=== PATIENT | female | born 1985 | race African-American/Black ===

== ENCOUNTER → 2016-11-29 | Outpatient (CLI) | payer MEDICAID | LOC: RAD 10:33 | PROVIDERS: ATTEND Nurse Practitioner | DX: M54.41 Lumbago with sciatica, right side (principal) | CPT/HCPCS: 72148 ==

== ENCOUNTER → 2018-06-22 | Outpatient (CLI) | payer MEDICAID ==
--- NOTE | 2018-06-22 12:34 | RADIOLOGY REPORT (SQ) ---
EXAM DESCRIPTION: T SPINE AP/LAT COMPLETED DATE/TIME: 06/22/2018 11:27 am REASON FOR STUDY: BACK PAIN (M54.9) M54.9 DORSALGIA, UNSPECIFIED COMPARISON: 04/28/2012 NUMBER OF VIEWS: Two views. TECHNIQUE: AP and lateral radiographic images acquired of the thoracic spine. LIMITATIONS: None. FINDINGS: MINERALIZATION: Normal. ALIGNMENT: Sigmoid scoliosis. 15 convex left at T3-4, 6 convex right T9-10. VERTEBRAE: No fracture or bone lesion. Maintained height, normal segmentation. DISCS: No significant loss of height or significant narrowing. No large osteophytes. HARDWARE: None in the spine. MEDIASTINUM AND SOFT TISSUES: Normal heart size and aortic contour. No soft tissue abnormality. VISUALIZED LUNG SALCEDO: Clear. OTHER: No other significant finding. IMPRESSION: Sigmoid scoliosis as described above. No acute findings. TECHNICAL DOCUMENTATION: JOB ID: [id number] [employer]- All Rights Reserved Reading location - IP/workstation name: [email or web address]
== END ==
LOC: RAD 11:06
PROVIDERS: ATTEND Physician Assistant
DX: M54.9 Dorsalgia, unspecified (principal); M41.84 Other forms of scoliosis, thoracic region
CPT/HCPCS: 72070

== ENCOUNTER 2020-05-22 19:35 | Emergency (ER) | payer MEDICAID ==
[2020-05-22 20:04] VITALS: BP 120/77
--- NOTE | 2020-05-22 21:47 | ER Document Report ---
Doctor's Note Notes: 05/22/20 21:47 Patient was not available for me to assess so I did not assess the patient I did not see the patient patient left without being seen.
== END 2020-05-22 21:47 | disposition left against medical advice (07) ==
LOC: ER 19:35
DX: Z53.21 Procedure and treatment not carried out due to patient leaving prior to being seen by health care provider (principal)